=== PATIENT | female | born 1995 | race Caucasian/White ===

== ENCOUNTER 2023-05-18 14:15 | Outpatient (CLI) | payer BC, SELFPAY ==
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
== END 2023-05-18 14:35 ==
LOC: LBN 14:16 → DI 14:26
PROVIDERS: Visit Provider Physician Assistant
DX: S42.021A Displaced fracture of shaft of right clavicle, initial encounter for closed fracture (principal); X58.XXXA Exposure to other specified factors, initial encounter; V19.9XXA Pedal cyclist (driver) (passenger) injured in unspecified traffic accident, initial encounter
CPT/HCPCS: 73000